=== PATIENT | male | born 1975 | race Two or more races ===

== ENCOUNTER 2022-02-05 01:01 | Emergency (ER) | payer OTHER ==
[~2022-02-05] VITALS: Ht 182.9 cm; Wt 102.1 kg
[~2022-02-05 01:01] MED LIST: COZAAR50 MG; OMEGA-31000 MG; [UNRECOGNIZED DRUG - OTHER]
[2022-02-05] MEDS ORDERED: AMOX-CLAV 875-1 EAC1 PO (02:58)
[2022-02-05] MEDS ORDERED: MUPIROCIN1 G1 TOP (02:58)
== END 2022-02-05 03:25 | disposition home or self-care (01) ==
LOC: ER 01:01
DX: S81.852A Open bite, left lower leg, initial encounter (principal); W54.0XXA Bitten by dog, initial encounter; Y92.099 Unspecified place in other non-institutional residence as the place of occurrence of the external cause